=== PATIENT | female | born 1985 | race Caucasian/White ===

== ENCOUNTER 2016-04-20 10:27 | Emergency (ER) | payer MEDICAID ==
[~2016-04-20] VITALS: Ht 162.6 cm; Wt 68.0 kg
[2016-04-20 10:44] VITALS: BP 122/80
== END 2016-04-20 12:44 | disposition home or self-care (01) ==
LOC: ER 10:29
DX: J20.9 Acute bronchitis, unspecified (principal); J45.909 Unspecified asthma, uncomplicated; F17.200 Nicotine dependence, unspecified, uncomplicated
CPT/HCPCS: 99283; A4606; Z7610

== ENCOUNTER 2016-05-12 19:27 | Emergency (ER) | payer MEDICAID ==
[~2016-05-12] VITALS: Ht 162.6 cm; Wt 63.5 kg
--- NOTE | 2016-05-12 19:41 | NUR ---
RENETTA TINEO AT BEDSIDE TO MALI MENCHACA.
[2016-05-12] MEDS ORDERED: FLUCONAZOLE (100 MG) 100 MG TABLET PO ONE (20:00)
[2016-05-12 20:15] LABS: APPEARANCE,URINE Clear (CLEAR); BILIRUBIN,URINE Negative (NEGATIVE); BLOOD, URINE Trace-intact Ery/uL (NEGATIVE); COLOR,URINE Yellow (YELLOW); KETONES,URINE Negative (NEGATIVE); LEUKOCYTE ESTERASE ,URINE Large (NEGATIVE); NITRITE, URINE Negative (NEGATIVE); PROTEIN,URINE Negative (NEGATIVE); UGLUCOSE Negative (NEGATIVE); UROBILINOGEN,URINE 0.2 EU/dL (0.2)
[2016-05-12 20:16] LABS: PREGNANCY TEST URINE QUAL NEGATIVE (NEGATIVE)
[2016-05-12 20:33] LABS: ADD URINE CULTURE YES; BACTERIA,URINE Few /HPF (None Seen); SQUAMOUS EPITHELIAL CELL,UR Many /HPF (None Seen)
[2016-05-12] MEDS ORDERED: FLUCONAZOLE (100 MG) 100 MG TABLET ONE (20:52)
[2016-05-12 21:07] VITALS: BP 127/63
--- NOTE | 2016-05-12 21:07 | NUR ---
Patient discharged to home in stable condition. Written and verbal after care instructions given. Patient verbalizes understanding of instruction.
== END 2016-05-12 21:08 | disposition home or self-care (01) ==
LOC: ER 19:31
DX: N76.0 Acute vaginitis (principal); N39.0 Urinary tract infection, site not specified; F17.200 Nicotine dependence, unspecified, uncomplicated
CPT/HCPCS: 81000-TC; 82962-TC; 84703-TC; 87086-TC; 87210-TC; 87491; 87591; A4606; Z7610

== ENCOUNTER 2017-05-15 00:56 | Inpatient (IN) | payer MEDICAID ==
[~2017-05-15] VITALS: Ht 162.6 cm; Wt 68.9 kg
--- NOTE | 2017-05-15 00:56 | NUR ---
BB SELF; RIGHT ABD/ FLANK PAIN "TIGHT" LIKE 10/16 NUASEA. VSS NAD. A/OX4 ABLE TO MAKE NEEDS KNOWN. WILL CONTINUE TO MONITOR FOR ANY CHANGES DURING THE SHIFT.
--- NOTE | 2017-05-15 01:25 | NUR ---
ER AT BEDSIDE
[2017-05-15] MEDS ORDERED: HYDROMORPHONE INJ 2 MG/ML DISP.SYRIN IV ONE (01:30)
[2017-05-15] MEDS ORDERED: IV NS 0.9% 1,000 ML BAG IV ONE (01:30)
[2017-05-15] MEDS ORDERED: ONDANSETRON HCL/PF 4 MG/2 ML VIAL IVP ONE (01:30)
[2017-05-15] MEDS ORDERED: HYDROMORPHONE INJ 2 MG/ML DISP.SYRIN ONE (01:33)
[2017-05-15] MEDS ORDERED: ONDANSETRON HCL/PF 4 MG/2 ML VIAL ONE (01:33)
[2017-05-15 02:01] LABS: BASOPHILS % (AUTO) 0.1 % (0.0-2.0); EOSINOPHILS % (AUTO) 0.8 % (0.0-6.0); HEMATOCRIT 40 % (33-45); HEMOGLOBIN 13.6 g/dL (11.5-14.8); LYMPHOCYTES # (AUTO) 1.6 /CMM (0.8-4.8); LYMPHOCYTES % (AUTO) 9.9 % (20.0-44.0); MEAN CORPUSCULAR HGB CONC 34 g/dl (31.0-36.0); MEAN CORPUSCULAR VOLUME 89 fL (82-100); MONOCYTES # (AUTO) 0.7 /CMM (0.1-1.30); MONOCYTES % (AUTO) 4.3 % (2.0-12.0); NEUTROPHILS # (AUTO) 13.5 /CMM (1.8-8.9); NEUTROPHILS % (AUTO) 84.9 % (43.0-81.0); PLATELET COUNT (AUTO) 228 /CMM (150-450); RDW COEFFICIENT OF VARIATION 12.8 (11.5-15.0); RED BLOOD CELL COUNT(AUTO) 4.46 MIL/uL (4.0-5.2); WHITE BLOOD COUNT (AUTO) 15.9 K/uL (4.3-11.0)
[2017-05-15 02:02] LABS: APPEARANCE,URINE CLEAR (CLEAR); BILIRUBIN,URINE NEGATIVE (NEGATIVE); BLOOD, URINE 1+ Ery/uL (NEGATIVE); COLOR,URINE YELLOW (YELLOW); KETONES,URINE NEGATIVE (NEGATIVE); LEUKOCYTE ESTERASE ,URINE 2+ (NEGATIVE); NITRITE, URINE NEGATIVE (NEGATIVE); PROTEIN,URINE NEGATIVE (NEGATIVE); UGLUCOSE NEGATIVE (NEGATIVE); UROBILINOGEN,URINE 0.2 EU/dL (0.2)
[2017-05-15 02:12] LABS: BACTERIA,URINE None seen /HPF (None Seen)
[2017-05-15 02:12] LABS: CALCIUM, SERUM 8.7 mg/dL (8.5-10.1); CREATININE 0.7 mg/dL (0.6-1.3)
[2017-05-15 02:13] LABS: INR 0.96 (0.87-1.13)
[2017-05-15 02:13] LABS: SQUAMOUS EPITHELIAL CELL,UR Few /HPF (None Seen)
[2017-05-15 02:17] LABS: ALBUMIN 3.6 g/dL (3.4-5.0); BILIRUBIN,DIRECT 0.1 mg/dL (0.0-0.2); BILIRUBIN,TOTAL 0.7 mg/dL (0.2-1.0); TOTAL PROTEIN, SERUM 7.1 g/dL (6.4-8.2)
--- NOTE | 2017-05-15 02:38 | NUR ---
PT OFF OT CT
[2017-05-15] MEDS ORDERED: IOHEXOL-300 100 ML VIAL IV ONE (02:41)
[2017-05-15] MEDS ORDERED: PIPERACILLIN /TAZOBACTAM 3.375 G in IV D5W 50 ML IV ONE (03:30)
[2017-05-15] MEDS ORDERED: PIPERACILLIN /TAZOBACTAM 3.375 G VIAL IV ONE (03:30)
[2017-05-15] MEDS ORDERED: KETOROLAC TROMETHAMINE INJ 30 MG/ML VIAL IV ONE (04:00)
[2017-05-15] MEDS ORDERED: KETOROLAC TROMETHAMINE INJ 30 MG/ML VIAL ONE (04:06)
--- NOTE | 2017-05-15 05:16 | NUR ---
HALAL MEAT PACKER AT BEDSIDE
--- NOTE | 2017-05-15 05:18 | NUR ---
[facility] called for transfer. No available beds.
[2017-05-15] MEDS ORDERED: ONDANSETRON HCL/PF 4 MG/2 ML VIAL IVP PRN (05:30)
[2017-05-15] MEDS ORDERED: MAGNESIUM HYDROXIDE 30 ML UDC PO PRN (05:30)
[2017-05-15] MEDS ORDERED: Z GUARD REMEDY 2 OZ OINT TP PRN (05:30)
[2017-05-15] MEDS ORDERED: ACETAMINOPHEN 325 MG TABLET PO PRN (05:30)
[2017-05-15] MEDS ORDERED: MAG HYDROX/AL HYDROX/SIMETH 30 ML UDC PO PRN (05:30)
[2017-05-15] MEDS ORDERED: IV D5/0.45 NACL 1,000 ML IV SCH (05:30)
[2017-05-15] MEDS ORDERED: MORPHINE SULFATE INJ 4 MG/ML DISP.SYRIN IV PRN (05:30)
--- NOTE | 2017-05-15 05:32 | NUR ---
REPORT GIVEN TO KATERYNA
--- NOTE | 2017-05-15 05:45 | NUR ---
MS RN ADMIN NOTE PT ARRIVED TO FLOOR FROM ER VIA GURNEY, WAS ABLE TO AMBULATE TO THE BED INDEPENDENTLY WITH STEADY GAIT. PT IS A/O X4 ABLE TO MAKE NEEDS KNOWN, MOSTLY [place]URKMEN SPEAKING. DENIES PAIN AT THIS TIME. REFUSED BODY CHECK. BELONGINGS LIST WAS COMPLETED. IV ACCESS IS INTACT AND PATENT, ABX AND FLUIDS WERE ORDERED AND CARRIED OUT. BED IS IN LOW AND LOCKED POSITION, CALL LIGHT WITHIN REACH. WILL CONTINUE TO MONITOR PT.
[2017-05-15] MEDS: CEFTRIAXONE 2 G in IV NS 0.9% 100 ML IV SCH (06:00)
[2017-05-15] MEDS ORDERED: CEFTRIAXONE 1 G VIAL ONE (06:04)
[2017-05-15 06:35] VITALS: BP 131/85
--- NOTE | 2017-05-15 07:44 | NUR ---
MS RN OPENING NOTES RECEIVED PT FROM NIGHTSHIFT NURSE IN STABLE CONDITION. PT IS A/O X3. NO SOB OR SIGNS OF DISTRESS NOTED/ BREATHING IS EVEN AND UNLABORED. PT REPORTS "LITTLE PAIN" AND THIS TIME AND STATES THAT IT IS TOLERABLE FOR NOW. IV TO LEFT FA 20G NOTED TO BE PATENT AND INTACT. PT CURRENTLY FINISHING ABX INFUSION. NO REDNESS OR SIGNS OF INFILTRATION NOTED. PT REMINDED THAT SHE MUST REMAIN NPO FOR POSSIBLE SURGERY AND VERBALIZED UNDERSTANDING. BED IN LOW LOCKED POSITION, SIDE RAILS UP X2, CALL LIGHT WITHIN REACH. WILL CONTINUE TO MONITOR
[2017-05-15 08:02] VITALS: BP 110/70
[2017-05-15] MEDS: PANTOPRAZOLE 40 MG VIAL IV SCH (08:25)
[2017-05-15] MEDS ORDERED: IV D5/0.45 NACL 1,000 ML IV PRN (08:31)
--- NOTE | 2017-05-15 14:13 | NUR ---
DIET ORDER PT'S DIET WAS CHANGED FROM NPO TO CLEAR LIQUIDS ORDERED BY JAYLENE
[2017-05-15 16:00] VITALS: BP 118/67
--- NOTE | 2017-05-15 17:09 | NUR ---
PT TAKEN DOWN FOR HIDA SCAN IN STABLE CONDITION
--- NOTE | 2017-05-15 18:17 | NUR ---
PT BACK FROM HIDA SCAN IN STABLE CONDITION
--- NOTE | 2017-05-15 18:45 | NUR ---
MS RN CLOSING NOTES PT REMAINS IN STABLE CONDITION. ALL NEEDS WERE MET DURING SHIFT AND ORDERS CARRIED OUT ACCORDINGLY. ALL DUE MEDS GIVEN. PT TOLERATING CLEAR LIQUID DIET WELL. AWAITING HIDA SCAN RESULTS. IV REMAINS PATENT AND INTACT. SAFETY MEASURES REMAIN IN PLACE. WILL ENDORSE TO NIGHTSHIFT NURSE FOR ANDREI
--- NOTE | 2017-05-15 19:20 | NUR ---
MS/RN OPENING NOTES PT RECEIVED SITTING UP IN BED. A/OX4. FAMILY AT BEDSIDE. ON ROOM AIR, BREATHING EVEN AND UNLABORED. DENIES SOB AND ABDOMINAL PAIN AT THIS TIME. IV TO LFA PATENT AND INTACT. BED IN LOW/LOCKED POSITION WITH CALL LIGHT IN REACH. SIDE RAILS UPX2. WILL CONTINUE TO MONITOR
[2017-05-15 20:00] VITALS: BP 115/72
[2017-05-15] MEDS: FENTANYL PF 100MCG/2ML AMPUL IV PRN (22:20)
[2017-05-16] MEDS: CEFTRIAXONE 2 G in IV NS 0.9% 100 ML IV SCH (06:29)
[2017-05-16] MEDS: PANTOPRAZOLE 40 MG VIAL IV SCH (06:37)
[2017-05-16] MEDS: FENTANYL PF 100MCG/2ML AMPUL IV PRN (06:37)
[2017-05-16 06:43] LABS: BASOPHILS % (AUTO) 0.3 % (0.0-2.0); EOSINOPHILS % (AUTO) 2.2 % (0.0-6.0); HEMATOCRIT 35 % (33-45); LYMPHOCYTES # (AUTO) 2.2 /CMM (0.8-4.8); MEAN CORPUSCULAR HGB CONC 35 g/dl (31.0-36.0); MEAN CORPUSCULAR VOLUME 89 fL (82-100); MONOCYTES % (AUTO) 9.7 % (2.0-12.0); NEUTROPHILS # (AUTO) 7.1 /CMM (1.8-8.9); NEUTROPHILS % (AUTO) 66.8 % (43.0-81.0); PLATELET COUNT (AUTO) 203 /CMM (150-450); RDW COEFFICIENT OF VARIATION 12.8 (11.5-15.0); RED BLOOD CELL COUNT(AUTO) 3.88 MIL/uL (4.0-5.2); WHITE BLOOD COUNT (AUTO) 10.6 K/uL (4.3-11.0)
[2017-05-16 06:54] LABS: CHOLESTEROL 115 mg/dL (<200); HDL CHOLESTEROL 37 mg/dL (40-60); LDL 69 mg/dL (0-99); TRIGLYCERIDES 83 mg/dL (30-150)
[2017-05-16 07:02] LABS: ALBUMIN 3.2 g/dL (3.4-5.0); BILIRUBIN,TOTAL 0.9 mg/dL (0.2-1.0); CALCIUM, SERUM 8.2 mg/dL (8.5-10.1); CREATININE 0.7 mg/dL (0.6-1.3); MAGNESIUM 1.9 mg/dL (1.8-2.4); PHOSPHORUS 2.6 mg/dL (2.5-4.9); TOTAL PROTEIN, SERUM 6.4 g/dL (6.4-8.2)
--- NOTE | 2017-05-16 07:20 | NUR ---
MS/RN CLOSING NOTES PT ASLEEP, EASILY AROUSABLE TO NAME. A/OX3. ON ROOM AIR, BREATHING EVEN AND UNLABORED. NO SOB AT THIS TIME. C/O OF RIGHT LOWER ABDOMINAL PAIN AND PRN SUBLIMAZE ADMINISTERED ORDERED. IV TO LAC PATENT AND INTACT RUNNING IVF ORDERED. KEPT PT COMFORTABLE DURING SHIFT. ALL NEEDS MET. BED IN LOW/LOCKED POSITION WITH CALL LIGHT IN REACH. SIDE RAILS UPX2. ENDORSED TO DAY SHIFT RN ANDREI.
--- NOTE | 2017-05-16 07:20 | NUR ---
ms rn initial notes Received patient in bed, asleep, head of bed elevated, no SOB or distress noted, on room air and tolerated well. No facial grimace noted. IV intact and patent with IVF infusing well. Call light with in patient reach, will continue to monitor accordingly.
[2017-05-16 08:00] VITALS: BP 114/65
[2017-05-16 15:52] VITALS: BP 116/73
[2017-05-16 16:00] VITALS: BP 116/73
--- NOTE | 2017-05-16 17:00 | NUR ---
ms patternmaker plastics notes Discharge instructions given to patient and able to understand instructions. Signed discharge paper and belonging list and no items missing. Skin is intact. Informed patient to follow up with primary health care physician in 1-2 weeks. Refused pneumonia and flu vaccine, explained the risk and benefits x 3 and still refused. Discontinued IV and pressured applied to prevent bleeding. Vital signs checked and recorded. Patient left the hospital in stable condition accompanied by and assigned CAR CUSTOMIZER. No complaint of pain or discomfort noted, nor chest pain. Md and charge nurse aware.
== END 2017-05-16 16:00 | disposition home or self-care (01) | DRG 445 ==
LOC: ER 00:56 → MEDSG2 05:29
PROVIDERS: ADMIT Registered Nurse; ATTEND Registered Nurse
DX: K80.20 Calculus of gallbladder without cholecystitis without obstruction (principal); K56.1 Intussusception; D72.829 Elevated white blood cell count, unspecified; I10 Essential (primary) hypertension; F17.210 Nicotine dependence, cigarettes, uncomplicated; E66.3 Overweight; Z68.26 Body mass index [BMI] 26.0-26.9, adult; R52 Pain, unspecified
CPT/HCPCS: 36415; 76705-TC; 78226; 80048-TC; 80053-TC; 80061-TC; 80076-TC; 81000-TC; 82746; 83690-TC; 83735-TC; 84100-TC; 84703-TC; 85025-TC; 85730-TC; 86850-TC; 87040-TC; 87081-TC; 87086-TC; A4606; A9537; C9113; J0696; J1170; J1885; J2270; J2405; J2543; J3010; J3490; J7030; J7060; Q9967; Z7610

== ENCOUNTER 2018-02-07 09:30 | Emergency (ER) | payer MEDICAID ==
[~2018-02-07] VITALS: Ht 162.6 cm; Wt 68.5 kg
--- NOTE | 2018-02-07 09:40 | NUR ---
BIB SELF W C/O ABSCESS ON THE RIGHT SHOULDER x 1 MONTH, STARTED A PIMPLE, PS 10/. TO ER BED 9, CHANGED TO NIDHI PICKERING, AWAITING MD SAMSON
[2018-02-07] MEDS ORDERED: CLINDAMYCIN 900 MG in IV D5W 50 ML IV ONE (10:00)
[2018-02-07] MEDS ORDERED: ACETAMINOPHEN ES 500 MG TABLET PO ONE (10:00)
[2018-02-07] MEDS ORDERED: IBUPROFEN 600 MG TABLET PO ONE ×2 (10:00→10:14)
[2018-02-07] MEDS ORDERED: ACETAMINOPHEN ES 500 MG TABLET ONE (10:14)
[2018-02-07 10:17] LABS: BASOPHILS # (AUTO) 0.1 /CMM (0.0-0.2); BASOPHILS % (AUTO) 0.5 % (0.0-2.0); EOSINOPHILS % (AUTO) 0.6 % (0.0-6.0); HEMATOCRIT 39 % (33-45); HEMOGLOBIN 13.5 g/dL (11.5-14.8); LYMPHOCYTES # (AUTO) 1.8 /CMM (0.8-4.8); MEAN CORPUSCULAR HGB CONC 35 g/dl (31.0-36.0); MEAN CORPUSCULAR VOLUME 89 fL (82-100); MONOCYTES # (AUTO) 1.3 /CMM (0.1-1.30); NEUTROPHILS # (AUTO) 12.8 /CMM (1.8-8.9); NEUTROPHILS % (AUTO) 79.9 % (43.0-81.0); PLATELET COUNT (AUTO) 246 /CMM (150-450); RED BLOOD CELL COUNT(AUTO) 4.34 MIL/uL (4.0-5.2); WHITE BLOOD COUNT (AUTO) 16.1 K/uL (4.3-11.0)
[2018-02-07 10:27] LABS: CALCIUM, SERUM 8.6 mg/dL (8.5-10.1); CREATININE 0.5 mg/dL (0.6-1.3); POTASSIUM 3.6 mmol/L (3.5-5.1)
[2018-02-07 10:33] LABS: ALBUMIN 3.8 g/dL (3.4-5.0); BILIRUBIN,DIRECT 0.1 mg/dL (0.0-0.2); BILIRUBIN,TOTAL 0.9 mg/dL (0.2-1.0); TOTAL PROTEIN, SERUM 7.4 g/dL (6.4-8.2)
[2018-02-07] MEDS ORDERED: IOHEXOL-300 100 ML VIAL IV ONE (11:13)
[2018-02-07] MEDS ORDERED: IV NS 0.9% 250 ML IV ONE (11:13)
[2018-02-07] MEDS ORDERED: CT SWABBABLE VALVE TRANS SET 1 EA INFUS.SET MC ONE (11:13)
--- NOTE | 2018-02-07 12:29 | NUR ---
IV removed. Catheter intact and site benign. Pressure and 4x4 applied to site. No bleeding noted.Patient discharged to home in stable condition. Written and verbal after care instructions given. Patient verbalizes understanding of instruction.
[2018-02-07 12:33] VITALS: BP 128/86
== END 2018-02-07 12:34 | disposition home or self-care (01) ==
LOC: ER 09:32
DX: L03.312 Cellulitis of back [any part except buttock and flank] (principal); F31.9 Bipolar disorder, unspecified; F17.200 Nicotine dependence, unspecified, uncomplicated
CPT/HCPCS: 36415; 70491; 80048; 80076; 83605; 84703; 85025; 87040 ×2; 96365; 99284; 99406; A4606; J3490; J7050; J7060; Q9967; Z7610

== ENCOUNTER 2018-02-09 13:03 | Emergency (ER) | payer MEDICAID ==
[~2018-02-09] VITALS: Ht 162.6 cm; Wt 68.0 kg
[2018-02-09 13:03] VITALS: BP 155/82
[2018-02-09] MEDS ORDERED: LIDOCAINE 1%-EPI 1:100,000 20 ML VIAL ONE (14:17)
[2018-02-09] MEDS ORDERED: LIDOCAINE 1%-EPI 1:100,000 50 ML VIAL IJ ONE (14:30)
== END 2018-02-09 15:31 | disposition home or self-care (01) ==
LOC: ER 13:03
DX: L02.212 Cutaneous abscess of back [any part, except buttock and flank] (principal); F31.9 Bipolar disorder, unspecified; F17.200 Nicotine dependence, unspecified, uncomplicated
CPT/HCPCS: 10060; 99283; 99406; A4606; A6402; A6407; J3490; Z7610

== ENCOUNTER 2019-12-26 13:08 | Emergency (ER) | payer MEDICAID ==
[~2019-12-26] VITALS: Ht 162.6 cm; Wt 68.0 kg
--- NOTE | 2019-12-26 13:18 | NUR ---
FROM HOME, C/O"CRUSHING" CP X2 WEEKS, WORSE TODAY & R/T LEFT ARM (09/15). PATIENT A/OX4, BREATHING EVEN AND UNLABORED, NO SOB NOTED,NEEDS ATTENDED. ATTACHED TO THE BILLING AND INSURANCE COORDINATOR. AMBULATORY WITH STEADY GAIT.
[2019-12-26 13:59] LABS: BASOPHILS % (AUTO) 0.3 % (0.0-2.0); EOSINOPHILS % (AUTO) 1.6 % (0.0-6.0); HEMATOCRIT 42 % (33-45); HEMOGLOBIN 14.4 g/dL (11.5-14.8); LYMPHOCYTES # (AUTO) 2.3 /CMM (0.8-4.8); LYMPHOCYTES % (AUTO) 21.1 % (20.0-44.0); MEAN CORPUSCULAR HGB CONC 35 g/dl (31.0-36.0); MEAN CORPUSCULAR VOLUME 90 fL (82-100); MONOCYTES # (AUTO) 0.7 /CMM (0.1-1.30); NEUTROPHILS # (AUTO) 7.7 /CMM (1.8-8.9); PLATELET COUNT (AUTO) 222 /CMM (150-450); RED BLOOD CELL COUNT(AUTO) 4.66 MIL/uL (4.0-5.2); WHITE BLOOD COUNT (AUTO) 10.8 K/uL (4.3-11.0)
[2019-12-26 14:30] LABS: CALCIUM, SERUM 8.5 mg/dL (8.5-10.1); CARBON DIOXIDE 26 mmol/L (21-32); CHLORIDE 105 mmol/L (98-107); CREATININE 0.6 mg/dL (0.6-1.3); GLUCOSE 88 mg/dL (74-106); POTASSIUM 3.5 mmol/L (3.5-5.1); SODIUM SERUM 138 mmol/L (136-145); UREA NITROGEN, BLOOD 7 mg/dL (7-18)
--- NOTE | 2019-12-26 14:37 | NUR ---
PATIENT SENT TO RESTROOM FOR URINE SAMPLE.
--- NOTE | 2019-12-26 15:19 | NUR ---
Patient a/ox4, no sob, no pain. Results given. IV removed. Catheter intact and site benign. Pressure and 4x4 applied to site. No bleeding noted.Patient discharged to home in stable condition. Written and verbal after care instructions given. Patient verbalizes understanding of instruction.
[2019-12-26 15:22] VITALS: BP 125/89
== END 2019-12-26 15:22 | disposition home or self-care (01) ==
LOC: ER 13:10
DX: R07.89 Other chest pain (principal); F17.200 Nicotine dependence, unspecified, uncomplicated
CPT/HCPCS: 36415; 71045-TC; 80048-TC; 84484-TC; 84703-TC; 85025-TC

== ENCOUNTER 2020-05-19 12:10 | Emergency (ER) | payer MEDICAID ==
[~2020-05-19] VITALS: Ht 162.6 cm; Wt 63.5 kg
--- NOTE | 2020-05-19 12:23 | NUR ---
BIBS FROM HOME TO ER BED 7. AAOX4. NOT IN RESP DISTRESS, BREATHING EVEN AND UNLABORED. AMBULATORY. CAME INFOR DIZZYNESS X 2 DAYS AND MID STERNAL CP X 1 DAYS. PER PT, SHE GET DIZZY AT TIME WHEN STANDING UP BUT WORST TODAY. CP IN MID STERNAL NON RADIATING PRESSURE /. AWAITING MD FOR EVAL.
[2020-05-19] MEDS ORDERED: MECLIZINE HCL 12.5 MG TABLET PO ONE (12:30)
[2020-05-19] MEDS ORDERED: IV NS 0.9% 1,000 ML BAG IV ONE (12:30)
[2020-05-19] MEDS ORDERED: METOCLOPRAMIDE HCL 10 MG/2 ML VIAL IV ONE (12:30)
[2020-05-19] MEDS ORDERED: MECLIZINE HCL 25 MG TABLET ONE (12:42)
[2020-05-19] MEDS ORDERED: METOCLOPRAMIDE HCL 10 MG/2 ML VIAL ONE (12:42)
[2020-05-19 12:57] LABS: BASOPHILS % (AUTO) 0.5 % (0.0-2.0); EOSINOPHILS % (AUTO) 1.7 % (0.0-6.0); HEMATOCRIT 44 % (33-45); HEMOGLOBIN 14.9 g/dL (11.5-14.8); LYMPHOCYTES # (AUTO) 2.5 /CMM (0.8-4.8); LYMPHOCYTES % (AUTO) 24.4 % (20.0-44.0); MEAN CORPUSCULAR HGB CONC 34 g/dl (31.0-36.0); MEAN CORPUSCULAR VOLUME 91 fL (82-100); MONOCYTES # (AUTO) 0.7 /CMM (0.1-1.30); MONOCYTES % (AUTO) 7.1 % (2.0-12.0); NEUTROPHILS # (AUTO) 6.8 /CMM (1.8-8.9); NEUTROPHILS % (AUTO) 66.3 % (43.0-81.0); PLATELET COUNT (AUTO) 237 /CMM (150-450); RED BLOOD CELL COUNT(AUTO) 4.82 MIL/uL (4.0-5.2); WHITE BLOOD COUNT (AUTO) 10.2 K/uL (4.3-11.0)
[2020-05-19 13:26] LABS: CALCIUM, SERUM 8.7 mg/dL (8.5-10.1); CARBON DIOXIDE 24 mmol/L (21-32); CHLORIDE 106 mmol/L (98-107); CREATININE 0.6 mg/dL (0.6-1.3); GLUCOSE 103 mg/dL (74-106); SODIUM SERUM 139 mmol/L (136-145); UREA NITROGEN, BLOOD 11 mg/dL (7-18)
[2020-05-19] MEDS ORDERED: MECL-159 PO (13:54)
[2020-05-19 15:05] LABS: BILIRUBIN,URINE NEGATIVE (NEGATIVE); COLOR,URINE YELLOW (YELLOW); LEUKOCYTE ESTERASE ,URINE NEGATIVE (NEGATIVE); NITRITE, URINE NEGATIVE (NEGATIVE); PROTEIN,URINE NEGATIVE (NEGATIVE); UGLUCOSE NEGATIVE (NEGATIVE); UROBILINOGEN,URINE 0.2 EU/dL (0.2)
[2020-05-19 17:20] VITALS: BP 110/67
--- NOTE | 2020-05-19 17:20 | NUR ---
Patient discharged to home in stable condition. Written and verbal after care instructions given. Patient verbalizes understanding of instruction. Pt ambulatory with a steady gait IV removed. Catheter intact and site benign. Pressure and 4x4 applied to site. No bleeding noted.
== END 2020-05-19 17:20 | disposition home or self-care (01) ==
LOC: ER 12:10
DX: R42 Dizziness and giddiness (principal); R07.89 Other chest pain; F17.200 Nicotine dependence, unspecified, uncomplicated
CPT/HCPCS: 36415; 70450; 71045; 80048; 81003; 84484; 84703; 85025; 93005; 96361; 96374; 99285; 99406; J2765; J7030; J8597

== ENCOUNTER 2021-12-18 14:46 | Emergency (ER) | payer MEDICAID ==
[~2021-12-18] VITALS: Ht 157.5 cm; Wt 74.8 kg
[~2021-12-18 14:46] MED LIST: MECL-159 PO
[2021-12-18 14:59] VITALS: BP 121/76
[2021-12-18] MEDS ORDERED: GUAI-671 PO (15:08)
--- NOTE | 2021-12-18 15:20 | NUR ---
Patient discharged to home in stable condition. Written and verbal after care instructions given. Patient verbalizes understanding of instruction.
== END 2021-12-18 15:22 | disposition home or self-care (01) ==
LOC: ER 14:49
DX: J20.9 Acute bronchitis, unspecified (principal); F17.200 Nicotine dependence, unspecified, uncomplicated; Z79.899 Other long term (current) drug therapy

== ENCOUNTER 2022-05-23 18:30 | Emergency (ER) | payer MEDICAID ==
[~2022-05-23] VITALS: Ht 162.6 cm; Wt 77.1 kg
[~2022-05-23 18:30] MED LIST changes: +GUAI-671 PO
--- NOTE | 2022-05-23 20:57 | NUR ---
BIBSELF FROM HOME C/O LLQ ABD PAIN 0200. UPON TRIAGE TEMP 103.2 PT A/OX4. TOLERATING R/A WELL WITH NO RESP DISTRESS. CONNECTED PT TO POX AND MONITOR. SAFETY MEASURES IN PLACE.
--- NOTE | 2022-05-23 21:09 | NUR ---
URINE COLLECTED AND SENT TO LAB
[2022-05-23] MEDS ORDERED: KETOROLAC TROMETHAMINE 15 MG/ML VIAL ONE (21:22)
[2022-05-23] MEDS ORDERED: ACETAMINOPHEN ES 500 MG TABLET ONE (21:26)
--- NOTE | 2022-05-23 21:28 | NUR ---
COMMERCIAL PHOTOGRAPHER AT PT'S BEDSIDE
[2022-05-23] MEDS ORDERED: ACETAMINOPHEN ES 500 MG TABLET PO ONE (21:30)
[2022-05-23] MEDS ORDERED: KETOROLAC TROMETHAMINE INJ 30 MG/ML VIAL IV ONE (21:30)
[2022-05-23] MEDS ORDERED: IV NS 0.9% 1,000 ML IV ONE (21:30)
[2022-05-23 21:48] LABS: BASOPHILS # (AUTO) 0.1 K/uL (0.0-0.2); BASOPHILS % (AUTO) 0.6 % (0.0-2.0); HEMATOCRIT 38 % (33-45); HEMOGLOBIN 12.8 g/dL (11.5-14.8); LYMPHOCYTES # (AUTO) 1.9 K/uL (0.8-4.8); LYMPHOCYTES % (AUTO) 10.4 % (20.0-44.0); MEAN CORPUSCULAR HGB CONC 34 g/dl (31.0-36.0); MEAN CORPUSCULAR VOLUME 87 fL (82-100); MONOCYTES # (AUTO) 2.2 K/uL (0.1-1.30); MONOCYTES % (AUTO) 12.4 % (2.0-12.0); NEUTROPHILS # (AUTO) 13.6 K/uL (1.8-8.9); NEUTROPHILS % (AUTO) 76.6 % (43.0-81.0); PLATELET COUNT (AUTO) 195 K/uL (150-450); RED BLOOD CELL COUNT(AUTO) 4.36 MIL/uL (4.0-5.2); WHITE BLOOD COUNT (AUTO) 17.7 K/uL (4.3-11.0)
[2022-05-23 21:59] LABS: CALCIUM, SERUM 9.1 mg/dL (8.5-10.1); CREATININE 0.7 mg/dL (0.6-1.3); POTASSIUM 3.3 mmol/L (3.5-5.1)
[2022-05-23 22:04] LABS: BILIRUBIN,URINE NEGATIVE (NEGATIVE); COLOR,URINE YELLOW (YELLOW); LEUKOCYTE ESTERASE ,URINE 2+ (NEGATIVE); NITRITE, URINE NEGATIVE (NEGATIVE); PROTEIN,URINE NEGATIVE (NEGATIVE); UGLUCOSE NEGATIVE (NEGATIVE)
[2022-05-23 22:05] LABS: ALBUMIN 3.7 g/dL (3.4-5.0); BILIRUBIN,DIRECT 0.2 mg/dL (0.0-0.2); BILIRUBIN,TOTAL 0.7 mg/dL (0.2-1.0); TOTAL PROTEIN, SERUM 7.4 g/dL (6.4-8.2)
[2022-05-23] MEDS ORDERED: IOHEXOL-300 100 ML VIAL IV ONE (22:07)
[2022-05-23] MEDS ORDERED: CT SWABBABLE VALVE TRANS SET 1 EA INFUS.SET MC ONE (22:07)
[2022-05-23] MEDS ORDERED: IV NS 0.9% 250 ML IV ONE (22:07)
--- NOTE | 2022-05-23 22:43 | NUR ---
IN NS 1000ML ENDTIME 2243.
--- NOTE | 2022-05-23 23:13 | NUR ---
PT TAKEN TO CT VIA COLE
--- NOTE | 2022-05-23 23:21 | NUR ---
PT RETURNED TO ER BED 16
[2022-05-24 00:20] LABS: BACTERIA,URINE Many /HPF (None Seen)
[2022-05-24 00:21] LABS: SQUAMOUS EPITHELIAL CELL,UR Few /HPF (None Seen)
[2022-05-24] MEDS ORDERED: CEFTRIAXONE 1GM BAG (ER ONLY) 1 GM/50 ML PIGGYBACK IV ONE (00:30)
[2022-05-24] MEDS ORDERED: METRONIDAZOLE 500MG/ NS 100ML 500 MG in PREMIX 1 EA IV ONE (00:30)
[2022-05-24] MEDS ORDERED: CEFTRIAXONE 1GM BAG (ER ONLY) 50 ML IV ONE (00:34)
[2022-05-24] MEDS ORDERED: METRONIDAZOLE 500MG/ NS 100ML 100 ML IV ONE (00:34)
--- NOTE | 2022-05-24 00:38 | NUR ---
US TECH AT PT'S BEDSIDE
--- NOTE | 2022-05-24 00:50 | NUR ---
CALLED LAB FOR BLOOD CULTURE DRAW.
[2022-05-24] MEDS ORDERED: CEPH500T PO (03:17)
--- NOTE | 2022-05-24 04:15 | NUR ---
Patient discharged to home in stable condition. Written and verbal after care instructions given. Patient verbalizes understanding of instruction.IV removed. Catheter intact and site benign. Pressure and 4x4 applied to site. No bleeding noted. Pt ambulatory with a steady gait
[2022-05-24 04:16] VITALS: BP 96/66
== END 2022-05-24 04:17 | disposition home or self-care (01) ==
LOC: ER 18:32
DX: R10.32 Left lower quadrant pain (principal); F17.210 Nicotine dependence, cigarettes, uncomplicated; Z79.899 Other long term (current) drug therapy
CPT/HCPCS: 99285; 74177; 76705; 96361; 96375; 99406; 85025; 80048; 87086; 83690; 80076; 84703; 81001; 36415 ×2; 96365; 96367; 87040 ×2; 83605; J7030; J7050; Q9967; J1885; A4216; J0696; A4223 ×2

== ENCOUNTER → 2022-09-28 | Emergency (ER) | payer MEDICAID ==
[~2022-09-28] VITALS: Ht 162.6 cm; Wt 72.6 kg
[~2022-09-28] MED LIST changes: +ACETAMINOPHEN ES 500 MG TABLET ONE; +CEPH500C2 PO; +CEPH500T PO; +ONDANSETRON HCL/PF 4 MG/2 ML VIAL ONE
[2022-09-28] MEDS: KETOROLAC TROMETHAMINE INJ 30 MG/ML VIAL IV ONE (16:00)
[2022-09-28] MEDS: IV NS 0.9% 1,000 ML BAG IV ONE (16:19)
[2022-09-28] MEDS: ACETAMINOPHEN ES 500 MG TABLET PO ONE (16:19)
[2022-09-28] MEDS: ONDANSETRON HCL/PF 4 MG/2 ML VIAL IVP ONE (16:20)
[2022-09-28 16:27] LABS: BASOPHILS # (AUTO) 0.1 K/uL (0.0-0.2); BASOPHILS % (AUTO) 0.5 % (0.0-2.0); EOSINOPHILS # (AUTO) 0.1 K/uL (0.0-0.7); EOSINOPHILS % (AUTO) 0.7 % (0.0-6.0); HEMATOCRIT 42 % (33-45); HEMOGLOBIN 14.3 g/dL (11.5-14.8); LYMPHOCYTES # (AUTO) 2.3 K/uL (0.8-4.8); LYMPHOCYTES % (AUTO) 20.1 % (20.0-44.0); MEAN CORPUSCULAR HEMOGLOBIN 30 PG (26.0-33.0); MEAN CORPUSCULAR HGB CONC 34 g/dl (31.0-36.0); MEAN CORPUSCULAR VOLUME 89 fL (82-100); MONOCYTES # (AUTO) 0.9 K/uL (0.1-1.30); MONOCYTES % (AUTO) 7.9 % (2.0-12.0); NEUTROPHILS # (AUTO) 8.1 K/uL (1.8-8.9); NEUTROPHILS % (AUTO) 70.8 % (43.0-81.0); PLATELET COUNT (AUTO) 246 K/uL (150-450); RED BLOOD CELL COUNT(AUTO) 4.76 MIL/uL (4.0-5.2); WHITE BLOOD COUNT (AUTO) 11.4 K/uL (4.3-11.0)
[2022-09-28 16:58] LABS: CALCIUM, SERUM 9.3 mg/dL (8.5-10.1); CREATININE 0.6 mg/dL (0.6-1.3); POTASSIUM 3.4 mmol/L (3.5-5.1)
[2022-09-28 17:03] LABS: ALBUMIN 4.2 g/dL (3.4-5.0); BILIRUBIN,DIRECT 0.1 mg/dL (0.0-0.2); BILIRUBIN,TOTAL 0.7 mg/dL (0.2-1.0); TOTAL PROTEIN, SERUM 8.2 g/dL (6.4-8.2)
[2022-09-28 17:16] LABS: PREGNANCY TEST URINE QUAL NEGATIVE (NEGATIVE)
[2022-09-28 17:23] LABS: APPEARANCE,URINE CLEAR (CLEAR); BILIRUBIN,URINE NEGATIVE (NEGATIVE); BLOOD, URINE 1+ Ery/uL (NEGATIVE); COLOR,URINE YELLOW (YELLOW); KETONES,URINE 2+ mg/dL (NEGATIVE); LEUKOCYTE ESTERASE ,URINE 2+ (NEGATIVE); NITRITE, URINE NEGATIVE (NEGATIVE); PH,URINE 6.5 (5.0-8.0); PROTEIN,URINE NEGATIVE (NEGATIVE); UGLUCOSE NEGATIVE (NEGATIVE); UROBILINOGEN,URINE 0.2 EU/dL (0.2)
[2022-09-28 17:49] LABS: ADD URINE CULTURE YES; BACTERIA,URINE Moderate /HPF (None Seen); SQUAMOUS EPITHELIAL CELL,UR Moderate /HPF (None Seen)
[2022-09-28 18:11] VITALS: BP 118/74; TEMP 98; O2SAT 97
== END | disposition left against medical advice (07) ==
LOC: ER 14:48
DX: N39.0 Urinary tract infection, site not specified (principal); E87.6 Hypokalemia; R10.9 Unspecified abdominal pain; F17.200 Nicotine dependence, unspecified, uncomplicated; Z79.899 Other long term (current) drug therapy
CPT/HCPCS: 99283; 96374; 96361; 85025; 80048; 87086; 83690; 80076; 84703; 81001; 36415; J2405; J7030

== ENCOUNTER 2022-12-15 14:35 | Emergency (ER) | payer MEDICAID ==
[~2022-12-15] VITALS: Ht 162.6 cm; Wt 74.4 kg
[~2022-12-15 14:35] MED LIST changes: -ACETAMINOPHEN ES 500 MG TABLET ONE; -ONDANSETRON HCL/PF 4 MG/2 ML VIAL ONE
[2022-12-15 15:01] VITALS: BP 113/70; TEMP 98.7; O2SAT 100
[2022-12-15] MEDS ORDERED: ACETAMINOPHEN 325 MG TABLET PO ONE (15:30)
[2022-12-15] MEDS ORDERED: ACETAMINOPHEN ES 500 MG TABLET ONE (15:33)
== END 2022-12-15 16:22 | disposition home or self-care (01) ==
LOC: ER 15:00
DX: M54.6 Pain in thoracic spine (principal); F17.200 Nicotine dependence, unspecified, uncomplicated; V43.52XA Car driver injured in collision with other type car in traffic accident, initial encounter; Y93.89 Activity, other specified; Y92.89 Other specified places as the place of occurrence of the external cause; Y99.8 Other external cause status

== ENCOUNTER → 2023-08-17 | Emergency (ER) | payer MEDICAID, OTHER ==
[~2023-08-17] VITALS: Ht 170.2 cm; Wt 74.8 kg
[~2023-08-17] MED LIST changes: +KETO10TA2 PO
[2023-08-17 22:25] VITALS: BP 142/96; TEMP 98.6; O2SAT 98
== END | disposition home or self-care (01) ==
LOC: ER 23:28
DX: M25.561 Pain in right knee (principal); M25.531 Pain in right wrist; M79.661 Pain in right lower leg; F17.200 Nicotine dependence, unspecified, uncomplicated; W01.0XXA Fall on same level from slipping, tripping and stumbling without subsequent striking against object, initial encounter; Y93.89 Activity, other specified; Y92.89 Other specified places as the place of occurrence of the external cause; Y99.8 Other external cause status
CPT/HCPCS: 73110; 73564-TC; 73590-TC